=== PATIENT | male | born 1960 | race Caucasian/White ===

== ENCOUNTER 2021-05-21 07:10 | Emergency (ER) | payer OTHER, SELFPAY ==
--- NOTE | ~2021-05-21 | CT_ITS ---
EXAMINATION: CT ABDOMEN AND PELVIS WITH CONTRAST CLINICAL INFORMATION: Epigastric pain and vomiting COMPARISON: Previous CT of the abdomen and pelvis February 2019 TECHNIQUE: Multidetector volumetric images were obtained from the superior aspect of the liver through the pubic symphysis following administration 85 mL of Omnipaque 350 intravenous contrast. Sagittal and coronal reformatted images were obtained on the technologist's workstation. Oral contrast: Yes This CT examination was performed using dose optimization techniques as appropriate, variously including the following: *Automated exposure control *Adjustment of mA and/or kV according to patient size (this includes techniques or standardized protocols for targeted exams where dose is matched to indication/reason for exam; i.e. extremities or head) *Use of iterative reconstruction technique DLP: 1269 mGy-cm FINDINGS: LUNG BASES: The visualized lung bases are unremarkable. LIVER, GALLBLADDER, AND BILIARY TREE: The liver is normal in size, shape, and attenuation. No focal hepatic lesion or biliary ductal dilatation is present. The gallbladder has been removed. PANCREAS: Unremarkable. SPLEEN: Unremarkable. ADRENAL GLANDS: Unremarkable. KIDNEYS AND URETERS: The kidneys are normal in size, shape, and attenuation. No hydronephrosis, hydroureter, or calculi seen. No perinephric stranding. BLADDER: Unremarkable. GASTROINTESTINAL TRACT: There is diverticulosis of the colon. No evidence of diverticulitis is seen. There is again mild dilatation of the terminal ileum. This again demonstrates questionable nodular areas of irregular wall thickening and enhancement. There is fatty deposition in the wall of the distal small bowel proximal to the terminal ileum and in the colon. Findings are again questionable for enteritis/inflammatory bowel disease. There is diverticulosis of the colon. No evidence of diverticulitis is seen. The appendix is normal. The aorta is normal. ABDOMINAL WALL: There is a small right inguinal hernia containing fat. LYMPH NODES: Normal. VASCULAR: There is evidence of atherosclerotic disease. No aneurysm is seen. PELVIC VISCERA: Unremarkable. OSSEOUS STRUCTURES: There are degenerative changes of the spine. CT/CT abdomen pelvis w con IMPRESSION: Similar small and large bowel findings to previous exam. Mild dilatation of the terminal ileum and areas of nodular enhancement and question mild wall thickening. Fatty deposition in the wall of the small bowel proximal to the terminal ileum Fleischner guidelines were followed.
--- NOTE | 2021-05-21 07:32 | ECG_ITS ---
Test Reason : ABDOMINAL PAIN Blood Pressure : / mmHG Vent. Rate : 068 BPM Atrial Rate : 083 BPM P-R Int : 158 ms QRS Dur : 112 ms QT Int : 392 ms P-R-T Axes : 062 035 049 degrees QTc Int : 416 ms Sinus rhythm with marked sinus arrhythmia Incomplete right bundle branch block Borderline ECG When compared with ECG of 21-OCT-2009 10:22, No significant change was found Referred By: Zohreh Jones Electronically Signed By:Adam Batres
--- NOTE | 2021-05-21 07:34 | ED.ABDPAIN ---
HPI - Abdominal Pain General Chief Complaint: Abdominal Pain Stated Complaint: vomiting Time Seen by Provider: 05/21/21 07:23 Source: patient and EMS Mode of arrival: EMS Limitations: no limitations History of Present Illness HPI narrative: 60 yo male with HTN, hx of GERD s/p gallbladder removal 15 years ago states he gets bouts of increased acid since gallbladder removal. Sudden onset abdominal cramps, diarrhea, vomiting and increased acide at 11pm last night. Last ate pizza but notes it is not the food that did this. MD elicited complaint: abdominal pain Pertinent past history: other (GERD) Onset (ago): hour(s) (11pm yesterday ) Pain Consistency: colicky Location: diffuse Severity: moderate Quality: cramping Radiation: none Migration to: no migration Exacerbating factors: eating Relieving factors: nothing Context: history of similar episodes Associated symptoms: nausea and vomiting Related Data Previous Rx's Medication Instructions Recorded metronidazole 500 mg tablet 500 mg PO BID 7 Days #14 tab 05/21/21 morphine 15 mg immediate release 15 mg PO Q6H PRN 3 Days #12 tab 05/21/21 tablet ondansetron 4 mg disintegrating 4 mg PO Q8H PRN #20 tab 05/21/21 tablet Allergies Allergy/AdvReac Type Severity Reaction Status Date / Time No Known Allergies Allergy Verified 05/21/21 08:28 none Allergy Unknown Unknown Uncoded 05/21/21 08:28 Review of Systems Review of Systems Constitutional : No Weight loss, No Fever, No Chills ENT/Mouth : No sore throat, No Rhinorrhea Eyes: No Swelling, No Redness Cardiovascular : No Chest Pain, No SOB, NoEdema Respiratory : No Cough, No Sputum, No Wheezing Gastrointestinal : Positive Nausea, Positive Vomiting, positive Diarrhea, positive abdominal Pain, No Hematochezia, No Melena Genitourinary : No Dysuria, No Urinary Frequency, No Hematuria, No Urgency Musculoskeletal : No joint pain, No Myalgias, No Joint Swelling Skin : No Skin Lesions, No rash Neuro : No Weakness, No Numbness, No Dizziness, No Headache Psych : No Anxiety/Panic, No Depression Heme/Lymph: No Bruising, No Lymphadenopathy Endocrine : No Polyuria, No Polydipsia All other systems reviewed and are negative. Physical Exam Vital Signs: Vital Signs: Last Vital Signs Temp 98 F 05/21/21 08:43 Pulse 106 H 05/21/21 09:38 Resp 12 05/21/21 09:38 BP 135/90 H 05/21/21 09:38 Pulse Ox 97 05/21/21 09:38 BMI result Body Mass Index 27.8 Appearance: Alert. Oriented X3. Moaning, very anxious somewhat agitated, mild acute distress Eyes: Pupils equal, round and reactive to light. ENT: Pharynx normal. Neck: Normal inspection. Neck supple. CVS: Normal heart rate and rhythm. Pulses normal. Respiratory: No respiratory distress. Breath sounds normal. Abdomen: Soft and mild epigastric ttp no rebound or guarding Skin: Skin warm and dry. pale skin color. Normal skin turgor. Extremities: No lower extremity edema. No calf ttp Neuro: Oriented X 3. No motor deficit. No sensory deficit. Course Course Course Narrative: no further vomiting, unchanged CT scan feels better, has GI appointment coming up would start on flagyl and pain medications refer to PCP able to tolerate PO MDM - Abdominal Pain MDM Narrative Medical decision making narrative: 60 yo male with HTN, hx of GERD s/p gallbladder removal 15 years ago states he gets bouts of increased acid since gallbladder removal. Sudden onset abdominal cramps, diarrhea, vomiting and increased acide at 11pm last night. At this time given degree of pain will obtain labs, CT scan for obstruction, IV morphine for pain, pepcid and anti-emetics. Dispo per results and findings. Lab Data Result diagrams: 05/21/21 08:26 05/21/21 08:26 Labs: Lab Results 05/21/21 05/21/21 05/21/21 Range/Units 08:26 08:26 08:26 WBC 11.4 H (4.8-10.8) X10*3/uL RBC 5.46 (4.60-5.80) X10*6/uL Hgb 16.6 (14.0-18.0) g/dl Hct 47.9 (42.0-52.0) % MCV 87.7 (80.0-98.0) fL MCH 30.4 (27.0-33.0) pg MCHC 34.7 (31.0-36.0) g/dl RDW 12.3 (11.0-16.0) % Plt Count 277 (160-400) X10*3/uL MPV 9.8 (9.4-12.4) fL Immature Gran % (Auto) 0.4 (0.0-0.4) % Neut % (Auto) 93.1 H (45-73) % Lymph % (Auto) 4.5 L (20-40) % Starr % (Auto) 1.7 L (2-11) % Eos % (Auto) 0.0 (0-4) % Baso % (Auto) 0.3 (0-2) % Lymph # (Auto) 0.5 L (1.2-4.9) X10*3/uL Starr # (Auto) 0.2 (0.1-1.2) X10*3/uL Eos # (Auto) 0.0 (0.0-0.4) X10*3/uL Baso # (Auto) 0.0 (0.0-0.2) X10*3/uL Abs Immat Gran (auto) 0.05 H (0.00-0.03) X10*3/uL Absolute Neuts (auto) 10.6 H (2.0-8.3) x10*3/uL Absolute Nucleated RBC 0.000 (0.0-0.012) X10*3/uL Nucleated RBC % (auto) 0.0 (0.0-0.2) /100WBC Smear Tech's Comments VERIFIED Sodium 137 (135-145) mmol/L Potassium 3.9 (3.3-5.1) mmol/L Chloride 105 (96-108) mmol/L Carbon Dioxide 21 L (22-29) mmol/L Anion Gap 15 (12-20) BUN 17 H (9-16) mg/dL Creatinine 1.03 (0.5-1.4) mg/dL Estim Creat Clear Calc 88.9 Estimated GFR > 60 Random Glucose 119 H (60-115) mg/dL Calcium 9.1 (8.4-10.2) mg/dL Magnesium 1.8 (1.6-2.6) mg/dL Total Bilirubin 0.8 (0.0-1.0) mg/dL Direct Bilirubin 0.2 (0.0-0.5) mg/dL AST 18 (5-37) U/L ALT 22 (0-40) U/L Alkaline Phosphatase 70 (39-117) U/L Troponin I High Sens (<3.5-35.0) ng/L Total Protein 6.7 (6.5-8.0) g/dL Albumin 4.1 (3.5-5.0) g/dL Lipase 27 (8-78) U/L COVID-19 ([place]) Negative (Negative) COVID-19 Clin Com See Note 05/21/21 Range/Units 08:26 WBC (4.8-10.8) X10*3/uL RBC (4.60-5.80) X10*6/uL Hgb (14.0-18.0) g/dl Hct (42.0-52.0) % MCV (80.0-98.0) fL MCH (27.0-33.0) pg MCHC (31.0-36.0) g/dl RDW (11.0-16.0) % Plt Count (160-400) X10*3/uL MPV (9.4-12.4) fL Immature Gran % (Auto) (0.0-0.4) % Neut % (Auto) (45-73) % Lymph % (Auto) (20-40) % Starr % (Auto) (2-11) % Eos % (Auto) (0-4) % Baso % (Auto) (0-2) % Lymph # (Auto) (1.2-4.9) X10*3/uL Starr # (Auto) (0.1-1.2) X10*3/uL Eos # (Auto) (0.0-0.4) X10*3/uL Baso # (Auto) (0.0-0.2) X10*3/uL Abs Immat Gran (auto) (0.00-0.03) X10*3/uL Absolute Neuts (auto) (2.0-8.3) x10*3/uL Absolute Nucleated RBC (0.0-0.012) X10*3/uL Nucleated RBC % (auto) (0.0-0.2) /100WBC Smear Tech's Comments Sodium (135-145) mmol/L Potassium (3.3-5.1) mmol/L Chloride (96-108) mmol/L Carbon Dioxide (22-29) mmol/L Anion Gap (12-20) BUN (9-16) mg/dL Creatinine (0.5-1.4) mg/dL Estim Creat Clear Calc Estimated GFR Random Glucose (60-115) mg/dL Calcium (8.4-10.2) mg/dL Magnesium (1.6-2.6) mg/dL Total Bilirubin (0.0-1.0) mg/dL Direct Bilirubin (0.0-0.5) mg/dL AST (5-37) U/L ALT (0-40) U/L Alkaline Phosphatase (39-117) U/L Troponin I High Sens < 3.5 (<3.5-35.0) ng/L Total Protein (6.5-8.0) g/dL Albumin (3.5-5.0) g/dL Lipase (8-78) U/L COVID-19 ([place]) (Negative) COVID-19 Clin Com ECG Data Attestation: I personally reviewed and interpreted this ECG as follows: ECG interpretation date: 05/21/21 ECG interpretation time: 08:16 Interpretation: Rate: 68 Rhythm: NSR [place]: normal Normal P waves. Normal NANI. incomplete RBBB ST T wave : normal no JOHN qTC: normal prior studies: no acute ischemia The study has been interpreted contemporaneously by me. . Discharge Plan Discharge Clinical Impression: Ileitis Abdominal pain Qualifiers: Abdominal location: epigastric Qualified Code(s): R10.13 - Epigastric pain Vomiting Qualifiers: Vomiting type: unspecified Nausea presence: with nausea Qualified Code(s): R11.2 - Nausea with vomiting, unspecified Patient Disposition: Home, Self-Care Instructions: Acute Nausea and Vomiting (ED), Abdominal Pain (ED), Enteritis (ED) Additional Instructions: return to ED for any worsening symptoms or concerns continue your antacids please follow up with your GI doctor DO NOT DRINK ALCOHOL WITH YOUR MEDICATION clear liquids for 24 hours Prescriptions: New morphine 15 mg tablet 15 mg PO Q6H PRN (Reason: pain) 3 Days Qty: 12 RF: 0 ondansetron 4 mg tablet,disintegrating 4 mg PO Q8H PRN (Reason: nausea and vomiting) Qty: 20 RF: 0 metronidazole 500 mg tablet 500 mg PO BID 7 Days Qty: 14 RF: 0 Stand Alone Forms: Work/School Release FOR[facility]LY [facility] Past Medical History Medical History (Updated 05/21/21 @ 10:36 by Zohreh [place] DO) GERD (gastroesophageal reflux disease) HTN (hypertension) Surgical History (Updated 05/21/21 @ 07:36 by Zohreh [place] DO) Hx of cholecystectomy Social History Social History (Updated 05/21/21 @ 07:37 by Zohreh [place] DO) Alcohol intake: never Patient Tobacco Use Status: Never used Tobacco Advance Directives: No Advance Directives Information Provided: No
[2021-05-21 07:43] VITALS: BP 154/105; PULSE 90; RESP 24; O2SAT 95
[2021-05-21] MEDS: Famotidine/PF 20 MG/2 ML VIAL IVPUSH (07:53)
[2021-05-21] MEDS: Metoclopramide HCl 10 MG/2 ML VIAL 5 MG IVPUSH (07:53)
[2021-05-21] MEDS: Morphine Sulfate 4 MG/ML CARTRIDGE IVPUSH (07:53)
[2021-05-21] MEDS: diphenhydrAMINE HCL 50 MG/ML VIAL 25 MG IVPUSH (07:54)
[2021-05-21] MEDS: 0.9 % Sodium Chloride 1,000 ML 999 ML IVCONT (07:59)
--- NOTE | 2021-05-21 07:59 | PC.NURSE ---
Received pt from EMS, but did not receive report from them. Pt states he has been having mid abd pain since last night with N/V/D. Pt AOx4, lungs clear with NSR. Pt abd rounded with tenderness to mid quad. Pt denies any dysuria.
[2021-05-21 08:33] VITALS: BP 161/91; PULSE 77; RESP 10; O2SAT 97
[2021-05-21 08:40] LABS: Basophils Percent Auto 0.3 % (0-2); Hematocrit 47.9 % (42.0-52.0); Hemoglobin 16.6 g/dl (14.0-18.0); Imm Gran Abs Auto 0.05 X10*3/uL (0.00-0.03); Imm Gran Pct Auto 0.4 % (0.0-0.4); Lymphocytes Absolute Auto 0.5 X10*3/uL (1.2-4.9); Lymphocytes Percent Auto 4.5 % (20-40); MANUAL DIFF FLAG SCAN; Mean Corpuscular HGB Conc 34.7 g/dl (31.0-36.0); Mean Corpuscular Hemoglobin 30.4 pg (27.0-33.0); Mean Corpuscular Volume 87.7 fL (80.0-98.0); Mean Platelet Volume 9.8 fL (9.4-12.4); Monocytes Absolute Auto 0.2 X10*3/uL (0.1-1.2); Monocytes Percent Auto 1.7 % (2-11); Neutrophils Absolute Auto 10.6 x10*3/uL (2.0-8.3); Neutrophils Percent Auto 93.1 % (45-73); Platelet Count 277 X10*3/uL (160-400); Red Blood Count 5.46 X10*6/uL (4.60-5.80); Red Cell Distribution Width 12.3 % (11.0-16.0); SCAN SMEAR FLAG 1; White Blood Count 11.4 X10*3/uL (4.8-10.8)
[2021-05-21 08:43] VITALS: TEMP 36.6
[2021-05-21 08:44] VITALS: BMI 27.8
[2021-05-21 08:48] LABS: COVID-19 Test Negative (Negative)
[2021-05-21 08:50] VITALS: RESP 12
[2021-05-21] MEDS: HYDROmorphone HCl 1 MG/ML SYRINGE IVPUSH (08:50)
[2021-05-21 08:56] LABS: Alanine Aminotransferase 22 U/L (0-40); Albumin Level 4.1 g/dL (3.5-5.0); Alkaline Phosphatase 70 U/L (39-117); Anion Gap 15 (12-20); Aspartate Amino Transferase 18 U/L (5-37); Bilirubin Direct 0.2 mg/dL (0.0-0.5); Bilirubin Total 0.8 mg/dL (0.0-1.0); Blood Urea Nitrogen 17 mg/dL (9-16); Calcium 9.1 mg/dL (8.4-10.2); Carbon Dioxide 21 mmol/L (22-29); Chloride 105 mmol/L (96-108); Creatinine Clr Calc Pharmacy 88.9; Estimated Glomerular Filt Rate > 60; Glucose Random 119 mg/dL (60-115); Lipase 27 U/L (8-78); Magnesium 1.8 mg/dL (1.6-2.6); Potassium 3.9 mmol/L (3.3-5.1); SLIDE REVIEW VERIFIED; Sodium 137 mmol/L (135-145); Total Protein 6.7 g/dL (6.5-8.0)
[2021-05-21 09:02] LABS: Troponin-I High Sensitivity < 3.5 ng/L (<3.5-35.0)
[2021-05-21] MEDS: iohexoL 350 MG/ML 100 ML INFUS..BTL IV (09:31)
[2021-05-21 09:38] VITALS: BP 135/90; PULSE 106; RESP 12; O2SAT 97
== END 2021-05-21 11:05 | disposition home or self-care (01) ==
PROVIDERS: Emergency Provider Emergency Medicine; PCP Internal Medicine
DX: K52.9 Noninfective gastroenteritis and colitis, unspecified (principal); R10.9 Unspecified abdominal pain; Z20.822 Contact with and (suspected) exposure to COVID-19; I10 Essential (primary) hypertension; K21.9 Gastro-esophageal reflux disease without esophagitis; Z90.49 Acquired absence of other specified parts of digestive tract
CPT/HCPCS: 36415; 74177; 80048; 80076; 83690; 83735; 84484; 85025; 87635; 93005; 96361; 96374; 96375; 99284; J1170; J1200; J2270; J2765; Q9967

== ENCOUNTER 2021-07-18 12:54 | Emergency (ER) | payer OTHER, SELFPAY ==
[2021-07-18 12:58] VITALS: BP 149/95; BP 160/90; PULSE 64; PULSE 78; RESP 22; TEMP 37.2; O2SAT 97; O2SAT 99; BMI 28.7
--- NOTE | 2021-07-18 13:05 | ED.ABDPAIN ---
HPI - Abdominal Pain General Chief Complaint: Nausea/Vomiting/Diarrhea Stated Complaint: N/V/D, POST X'S 1 WEEK PER EMS Time Seen by Provider: 07/18/21 12:56 History of Present Illness HPI narrative: Patient states he has a history of Crohn's disease. He gets intermittent flare-up for his vomiting and diarrhea. His last episode here was in May, 2 months ago. He is about 1 week postop from cervical spine fusion surgery at [facility] in [place] He complains of abdominal pain which is typical for a flare. No significant neck pain No weakness numbness or paresthesias He was treated by EMS with IV fluids and IV Zofran EN route. He is still actively vomiting in complaining of abdominal pain No fevers or chills He is taking dexamethasone for postop swelling. He believes this may be causing his symptoms Related Data Previous Rx's Medication Instructions Recorded metronidazole 500 mg tablet 500 mg PO BID 7 Days #14 tab 05/21/21 morphine 15 mg immediate release 15 mg PO Q6H PRN 3 Days #12 tab 05/21/21 tablet ondansetron 4 mg disintegrating 4 mg PO Q8H PRN #20 tab 05/21/21 tablet morphine 15 mg immediate release 15 mg PO Q6H PRN #12 tab 07/18/21 tablet ondansetron HCl 4 mg tablet 4 mg PO Q6H PRN #20 tab 07/18/21 Allergies Allergy/AdvReac Type Severity Reaction Status Date / Time No Known Allergies Allergy Verified 05/21/21 08:28 none Allergy Unknown Unknown Uncoded 05/21/21 08:28 Review of Systems Comments: No fevers or chills Comments: No chest pain Comments: No cough or shortness of breath Comments: Abdominal pain with nausea vomiting and diarrhea Comments: No extremity pain Comments: No rash. Wounds from surgery intact Comments: No weakness numbness or paresthesias. No significant neck or back pain Physical Exam Vital Signs: Vital Signs: Last Vital Signs Temp 98.6 F 07/18/21 17:20 Pulse 94 07/18/21 17:20 Resp 16 07/18/21 17:20 BP 156/85 H 07/18/21 17:20 Pulse Ox 95 07/18/21 17:20 BMI result Body Mass Index 28.7 Const: Other: Awake and alert appears uncomfortable. Actively dry heaving HENMT: Other: Normocephalic atraumatic Neck: Other: Anterior surgical scar clean dry and intact No posterior neck discomfort Resp: Other: No respiratory distress. Clear and equal bilaterally Cardio: Other: Regular rate rhythm without murmurs rubs or gallops GI: Other: Soft, nondistended, diffusely mildly tender without guarding rebound Back/Spine/Pelvis: Other: No midline tenderness Skin: Other: Warm pink and dry. Surgical scars intact Neuro: Other: Alert oriented x3. No focal motor deficits Course Course Course Narrative: Gastroenteritis Crohn's flare I ntractable vomiting and diarrhea Dehydration Gastritis Pancreatitis Hepatitis IV fluids IV droperidol IV Benadryl IV dilaudid IV Ativan Medications spaced out over time 13:54. Patient is no longer actively vomiting. He still states he is having pain and nausea though Re-examination shows abdomen is soft nontender, nondistended at this time Await labs 17:24 Labs show mild leukocytosis consistent with prior flare ups Chemistry showed mildly elevated BUN consistent with dehydration. Creatinine is normal Blood sugar is 118 Other labs are unremarkable Patient is feeling much better and tolerated p.o. challenge without difficulty. Will discharge home on Zofran and morphine which she has received in the past with similar flare-ups MDM - Abdominal Pain Lab Data Result diagrams: 07/18/21 14:05 07/18/21 14:05 Labs: Lab Results 07/18/21 07/18/21 07/18/21 Range/Units 14:05 14:05 14:05 WBC 12.8 H (4.8-10.8) X10*3/uL RBC 5.03 (4.60-5.80) X10*6/uL Hgb 15.3 (14.0-18.0) g/dl Hct 44.5 (42.0-52.0) % MCV 88.5 (80.0-98.0) fL MCH 30.4 (27.0-33.0) pg MCHC 34.4 (31.0-36.0) g/dl RDW 12.7 (11.0-16.0) % Plt Count 243 (160-400) X10*3/uL MPV 9.3 L (9.4-12.4) fL Immature Gran % (Auto) 4.1 H (0.0-0.4) % Neut % (Auto) 81.4 H (45-73) % Lymph % (Auto) 9.3 L (20-40) % [place] % (Auto) 4.7 (2-11) % Eos % (Auto) 0.2 (0-4) % Baso % (Auto) 0.3 (0-2) % Lymph # (Auto) 1.2 (1.2-4.9) X10*3/uL [place] # (Auto) 0.6 (0.1-1.2) X10*3/uL Eos # (Auto) 0.0 (0.0-0.4) X10*3/uL Baso # (Auto) 0.0 (0.0-0.2) X10*3/uL Abs Immat Gran (auto) 0.52 H (0.00-0.03) X10*3/uL Absolute Neuts (auto) 10.4 H (2.0-8.3) x10*3/uL Absolute Nucleated RBC 0.000 (0.0-0.012) X10*3/uL Nucleated RBC % (auto) 0.0 (0.0-0.2) /100WBC Sodium 139 (135-145) mmol/L Potassium 3.4 (3.3-5.1) mmol/L Chloride 104 (96-108) mmol/L Carbon Dioxide 26 (22-29) mmol/L Anion Gap 12 (12-20) BUN 21 H (9-16) mg/dL Creatinine 0.90 (0.5-1.4) mg/dL Estim Creat Clear Calc 100.1 Estimated GFR > 60 Random Glucose 118 H (60-115) mg/dL Lactic Acid 1.7 (0.5-2.0) mmol/L Calcium 8.4 D (8.4-10.2) mg/dL Total Bilirubin 0.8 (0.0-1.0) mg/dL AST 13 (5-37) U/L ALT 24 (0-40) U/L Alkaline Phosphatase 63 (39-117) U/L Troponin I High Sens (<3.5-35.0) ng/L Total Protein 5.8 L (6.5-8.0) g/dL Albumin 3.6 (3.5-5.0) g/dL Urine Color Urine Appearance Urine pH (5.0-8.0) Ur Specific [place] (1.005-1.025) Urine Protein (NEG-TRACE) MG/DL Urine Glucose (UA) (NEG) MG/DL Urine Ketones (NEG) MG/DL Urine Blood (NEG) Urine Nitrite (NEG) Ur Leukocyte Esterase (NEG) Urine RBC (0) /HPF Urine WBC (0-4) /HPF Ur Squamous Epith Cells /LPF Urine Bacteria /LPF COVID-19 ([place]) (Negative) COVID-19 Clin Com 07/18/21 07/18/21 07/18/21 Range/Units 14:05 14:05 15:49 WBC (4.8-10.8) X10*3/uL RBC (4.60-5.80) X10*6/uL Hgb (14.0-18.0) g/dl Hct (42.0-52.0) % MCV (80.0-98.0) fL MCH (27.0-33.0) pg MCHC (31.0-36.0) g/dl RDW (11.0-16.0) % Plt Count (160-400) X10*3/uL MPV (9.4-12.4) fL Immature Gran % (Auto) (0.0-0.4) % Neut % (Auto) (45-73) % Lymph % (Auto) (20-40) % [place] % (Auto) (2-11) % Eos % (Auto) (0-4) % Baso % (Auto) (0-2) % Lymph # (Auto) (1.2-4.9) X10*3/uL [place] # (Auto) (0.1-1.2) X10*3/uL Eos # (Auto) (0.0-0.4) X10*3/uL Baso # (Auto) (0.0-0.2) X10*3/uL Abs Immat Gran (auto) (0.00-0.03) X10*3/uL Absolute Neuts (auto) (2.0-8.3) x10*3/uL Absolute Nucleated RBC (0.0-0.012) X10*3/uL Nucleated RBC % (auto) (0.0-0.2) /100WBC Sodium (135-145) mmol/L Potassium (3.3-5.1) mmol/L Chloride (96-108) mmol/L Carbon Dioxide (22-29) mmol/L Anion Gap (12-20) BUN (9-16) mg/dL Creatinine (0.5-1.4) mg/dL Estim Creat Clear Calc Estimated GFR Random Glucose (60-115) mg/dL Lactic Acid (0.5-2.0) mmol/L Calcium (8.4-10.2) mg/dL Total Bilirubin (0.0-1.0) mg/dL AST (5-37) U/L ALT (0-40) U/L Alkaline Phosphatase (39-117) U/L Troponin I High Sens 4.8 (<3.5-35.0) ng/L Total Protein (6.5-8.0) g/dL Albumin (3.5-5.0) g/dL Urine Color YELLOW Urine Appearance CLEAR Urine pH 6.0 (5.0-8.0) Ur Specific [place] 1.025 (1.005-1.025) Urine Protein NEG (NEG-TRACE) MG/DL Urine Glucose (UA) NEG (NEG) MG/DL Urine Ketones NEG (NEG) MG/DL Urine Blood TRACE (NEG) Urine Nitrite NEG (NEG) Ur Leukocyte Esterase NEG (NEG) Urine RBC 0-2 (0) /HPF Urine WBC 0-2 (0-4) /HPF Ur Squamous Epith Cells TRACE /LPF Urine Bacteria NONE /LPF COVID-19 ([place]) Negative (Negative) COVID-19 Clin Com See Note Discharge Plan Discharge Clinical Impression: Vomiting and diarrhea Patient Disposition: Home, Self-Care Instructions: Acute Nausea and Vomiting (ED), Acute Diarrhea (ED), Acute Abdominal Pain (ED) Additional Instructions: Be sure to follow-up 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 Ondansetron is for nausea Morphine is for severe pain Prescriptions: New ondansetron HCl 4 mg tablet 4 mg PO Q6H PRN (Reason: nausea and vomiting) Qty: 20 0RF morphine 15 mg tablet 15 mg PO Q6H PRN (Reason: pain) Qty: 12 0RF No Action morphine 15 mg tablet 15 mg PO Q6H PRN (Reason: pain) 3 Days Qty: 12 0RF ondansetron 4 mg tablet,disintegrating 4 mg PO Q8H PRN (Reason: nausea and vomiting) Qty: 20 0RF metronidazole 500 mg tablet 500 mg PO BID 7 Days Qty: 14 0RF PMFSH Past Medical History Medical History (Updated 07/18/21 @ 17:26 by Neeraj Harrison MD) GERD (gastroesophageal reflux disease) HTN (hypertension) Surgical History (Updated 05/21/21 @ 07:36 by Zohreh [place] DO) Hx of cholecystectomy Social History Social History (Updated 05/21/21 @ 07:37 by Zohreh [place] DO) Alcohol intake: never Patient Tobacco Use Status: Never used Tobacco Use of substances other than those prescribed or required for medical reasons: No Advance Directives: No Advance Directives Information Provided: No
[2021-07-18] MEDS: diphenhydrAMINE HCL 50 MG/ML VIAL 25 MG IVPUSH (13:18)
[2021-07-18] MEDS: 0.9 % Sodium Chloride 1,000 ML 999 ML IV (13:19)
[2021-07-18] MEDS: LORazepam 2 MG/ML VIAL 1 MG IVPUSH (13:36)
[2021-07-18] MEDS: HYDROmorphone HCl 1 MG/ML SYRINGE IVPUSH (13:37)
[2021-07-18 14:13] LABS: MANUAL DIFF FLAG NO
[2021-07-18 14:15] LABS: Basophils Percent Auto 0.3 % (0-2); Eosinophils Percent Auto 0.2 % (0-4); Hematocrit 44.5 % (42.0-52.0); Hemoglobin 15.3 g/dl (14.0-18.0); Imm Gran Abs Auto 0.52 X10*3/uL (0.00-0.03); Imm Gran Pct Auto 4.1 % (0.0-0.4); Lymphocytes Absolute Auto 1.2 X10*3/uL (1.2-4.9); Lymphocytes Percent Auto 9.3 % (20-40); Mean Corpuscular HGB Conc 34.4 g/dl (31.0-36.0); Mean Corpuscular Hemoglobin 30.4 pg (27.0-33.0); Mean Corpuscular Volume 88.5 fL (80.0-98.0); Mean Platelet Volume 9.3 fL (9.4-12.4); Monocytes Absolute Auto 0.6 X10*3/uL (0.1-1.2); Monocytes Percent Auto 4.7 % (2-11); Neutrophils Absolute Auto 10.4 x10*3/uL (2.0-8.3); Neutrophils Percent Auto 81.4 % (45-73); Platelet Count 243 X10*3/uL (160-400); Red Blood Count 5.03 X10*6/uL (4.60-5.80); Red Cell Distribution Width 12.7 % (11.0-16.0); White Blood Count 12.8 X10*3/uL (4.8-10.8)
[2021-07-18 14:30] LABS: COVID-19 Test Negative (Negative)
[2021-07-18 14:31] LABS: Lactic Acid 1.7 mmol/L (0.5-2.0)
[2021-07-18 14:38] LABS: Troponin-I High Sensitivity 4.8 ng/L (<3.5-35.0)
[2021-07-18 14:42] LABS: Alanine Aminotransferase 24 U/L (0-40); Albumin Level 3.6 g/dL (3.5-5.0); Alkaline Phosphatase 63 U/L (39-117); Anion Gap 12 (12-20); Aspartate Amino Transferase 13 U/L (5-37); Bilirubin Total 0.8 mg/dL (0.0-1.0); Blood Urea Nitrogen 21 mg/dL (9-16); Calcium 8.4 mg/dL (8.4-10.2); Carbon Dioxide 26 mmol/L (22-29); Chloride 104 mmol/L (96-108); Creatinine Clr Calc Pharmacy 100.1; Estimated Glomerular Filt Rate > 60; Glucose Random 118 mg/dL (60-115); Potassium 3.4 mmol/L (3.3-5.1); Sodium 139 mmol/L (135-145); Total Protein 5.8 g/dL (6.5-8.0)
[2021-07-18 15:58] LABS: Appearance Urine CLEAR; Color Urine YELLOW; Glucose Urine UA NEG (NEG); Leukocyte Esterase Urine NEG (NEG); Nitrite Urine NEG (NEG); Specific Gravity - Urine 1.025 (1.005-1.025); UACC Culture Trigger NO; Urine Blood TRACE (NEG); Urine Ketones NEG (NEG); Urine Protein NEG (NEG-TRACE)
[2021-07-18 16:05] LABS: RBC Urine 0-2 /HPF (0); Squamous Epithelial Cell Urine TRACE /LPF; WBC Urine 0-2 /HPF (0-4)
--- NOTE | 2021-07-18 17:14 | PC.NURSE ---
pt tolerating PO well
[2021-07-18 17:20] VITALS: BP 156/85; PULSE 94; RESP 16; TEMP 37; O2SAT 95
== END 2021-07-18 18:11 | disposition home or self-care (01) ==
PROVIDERS: Emergency Provider Emergency Medicine; PCP Internal Medicine
DX: R11.10 Vomiting, unspecified (principal); R19.7 Diarrhea, unspecified; Z20.822 Contact with and (suspected) exposure to COVID-19; I10 Essential (primary) hypertension
CPT/HCPCS: 80053; 81001; 83605; 84484; 85025; 87635; 96361; 96374; 96375; 99284; J1170; J1200; J1790; J2060